=== PATIENT | female | born 1945 | race Caucasian/White ===

== ENCOUNTER 2022-07-02 21:38 | Emergency (ER) | payer MEDICARE ==
[2022-07-02 22:04] VITALS: RESP 16; TEMP 97.6
--- NOTE | 2022-07-02 22:08 | ED ---
Fall HPI - General Chief Complaint: Fall Stated Complaint: Fall, Shoulder injruy Time Seen by Provider: 07/02/22 21:55 Source: patient, RN notes reviewed, old records reviewed Mode of arrival: EMS - History of Present Illness Initial Comments: 77-year-old female here status post fall complaining of shoulder pain. Patient on her right side of her body but also her head. No loss of consciousness no blood thinners. 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 ROS Other: All systems not noted in ROS Statement are negative. Past Medical History Past Medical History: Hyperlipidemia, Thyroid Disorder History of Any Multi-Drug Resistant Organisms: None Reported Additional Past Surgical History / Comment(s): eyelids Past Psychological History: No Psychological Hx Reported Smoking Status: Never smoker Past Alcohol Use History: None Reported Past Drug Use History: None Reported General Exam Limitations: no limitations General appearance: alert, in no apparent distress Head exam: Present: atraumatic, normocephalic, normal inspection Eye exam: Present: normal appearance, PERRL, EOMI. Absent: scleral icterus, conjunctival injection, periorbital swelling ENT exam: Present: normal exam, mucous membranes moist Neck exam: Present: normal inspection. Absent: tenderness, meningismus, lymphadenopathy Respiratory exam: Present: normal lung sounds bilaterally. Absent: respiratory distress, wheezes, rales, rhonchi, stridor Cardiovascular Exam: Present: regular rate, normal rhythm, normal heart sounds. Absent: systolic murmur, diastolic murmur, rubs, gallop, clicks GI/Abdominal exam: Present: soft, normal bowel sounds. Absent: distended, tenderness, guarding, rebound, rigid Extremities exam: Present: normal inspection, full ROM, normal capillary refill. Absent: tenderness, pedal edema, joint swelling, calf tenderness Back exam: Present: normal inspection Neurological exam: Present: alert, oriented X3, CN II-XII intact Psychiatric exam: Present: normal affect, normal mood Skin exam: Present: warm, dry, intact, normal color. Absent: rash Course Vital Signs 07/02/22 07/03/22 07/03/22 21:58 01:43 02:05 Temperature 97.6 F Pulse Rate 73 100 96 Respiratory 16 16 16 Rate Blood Pressure 139/64 132/80 126/78 O2 Sat by Pulse 98 91 L 94 L Oximetry - Reevaluation(s) Reevaluation #1: 07/02/22 medical record is reviewed patient symptoms improved here in the ER patient informed of results and questions answered Medical Decision Making - Medical Decision Making 77 female to the emergency department for evaluation patient's positive for humerus fracture. Patient fracture splinted in a splint patient can be discharged - Radiology Data Radiology results: report reviewed (CT CT brain C-spine as well as x-rays of chest pelvis knee and shoulder show positive right humerus fracture nondisplaced), image reviewed Disposition Clinical Impression: Fall, Closed right humeral fracture Disposition: HOME SELF-CARE Condition: Good Instructions (If sedation given, give patient instructions): Arm Fracture in Adults (ED), Fall Prevention for Older Adults (ED), Proximal Humerus Fracture (ED) Is patient prescribed a controlled substance at d/c from ED?: No Referrals: Bartool Boucher DO [Primary Care Provider] - 1-2 days Time of Disposition: 02:00
--- NOTE | 2022-07-02 23:26 | XR ---
EXAMINATION TYPE: XR chest 1V DATE OF EXAM: 07/02/2022 COMPARISON: NONE HISTORY: Pain TECHNIQUE: Single view FINDINGS: There is no heart failure nor confluent pneumonic infiltrate. Costophrenic angles are clear . There are no hilar masses. Bony thorax is intact. IMPRESSION: No active cardiopulmonary disease. Normal heart.
--- NOTE | 2022-07-02 23:41 | XR ---
EXAMINATION TYPE: XR pelvis AP view DATE OF EXAM: 07/02/2022 COMPARISON: NONE HISTORY: Pain TECHNIQUE: Single view FINDINGS: Pelvic ring is intact. Proximal femurs and hip joints are intact. Sacroiliac joints are int act. IMPRESSION: Normal pelvis. No fracture.
--- NOTE | 2022-07-02 23:44 | XR ---
EXAMINATION TYPE: XR knee limited RT DATE OF EXAM: 07/02/2022 COMPARISON: NONE HISTORY: Knee pain TECHNIQUE: 2 views FINDINGS: There is minor spurring of the femoral and tibial condyles. There is mild spurring of the p atella. No fracture nor dislocation. No evidence of joint effusion. IMPRESSION: Mild degenerative spur formation. No fracture.
--- NOTE | 2022-07-02 23:45 | XR ---
EXAMINATION TYPE: XR shoulder complete RT DATE OF EXAM: 07/02/2022 COMPARISON: NONE HISTORY: Fall. Pain TECHNIQUE: 2 views FINDINGS: There is evidence of a chip fracture of the greater tuberosity humerus. There is likely a h umeral neck fracture. Exam limited by the 2 views. No dislocation. The scapula is intact. IMPRESSION: Greater tuberosity fracture of the humerus. There is likely femoral neck nondisplaced fra cture. Limited exam.
--- NOTE | 2022-07-02 23:47 | XR ---
EXAMINATION TYPE: XR forearm RT DATE OF EXAM: 07/02/2022 COMPARISON: NONE HISTORY: Pain TECHNIQUE: 2 views FINDINGS: I see no fracture nor dislocation. Joint spaces are normal. Elbow joint and wrist joint marty ear intact. Carpal bones appear intact. IMPRESSION: Negative right forearm exam. No fracture seen.
--- NOTE | 2022-07-02 23:53 | CT ---
EXAMINATION TYPE: CT brain willie gray DATE OF EXAM: 07/02/2022 COMPARISON: None HISTORY: fall/pain. no prior on PACS CT DLP: 1362.8 mGycm Automated exposure control for dose reduction was used. Images of the brain and cervical spine obtained with no contrast. There is mild cerebral atrophy. There is no mass effect or midline shift. No sign of intracranial hem orrhage. Calvarium is intact. Skull base is intact. There is normal aeration of the mastoid sinuses. The cervical vertebra have normal alignment. There is mild narrowing at the C4-5 and C5-6 disc spaces with mild spurring of the endplates. There is hypertrophic multilevel cervical facet arthropathy. No compression fracture. IMPRESSION: Spondylotic changes in the lower cervical spine. No fracture. Mild cerebral atrophy appropriate for age. No acute intracranial abnormality.
[2022-07-03] MEDS ORDERED: MORPHINE SULFATE 4 MG/ML SYRINGE IVP STA (01:00)
[2022-07-03 02:25] VITALS: BP 126/78; PULSE 96
== END 2022-07-03 02:05 | disposition home or self-care (01) ==
LOC: EC 21:38
DX: S42.251A Displaced fracture of greater tuberosity of right humerus, initial encounter for closed fracture (principal); W01.198A Fall on same level from slipping, tripping and stumbling with subsequent striking against other object, initial encounter; Y92.009 Unspecified place in unspecified non-institutional (private) residence as the place of occurrence of the external cause
CPT/HCPCS: 72170; 73030; 73090; 73560; 71045; 72125; 70450; 99285; 96374; J2270

== ENCOUNTER 2023-10-09 19:21 | Inpatient (IN) | payer MEDICARE ==
[2023-10-09] MEDS ORDERED: MORPHINE SULFATE 4 MG/ML SYRINGE IVP STA (19:52)
[2023-10-09] MEDS ORDERED: ONDANSETRON 4 MG/2 ML VIAL IVP STA (19:52)
--- NOTE | 2023-10-09 20:22 | XR ---
EXAMINATION TYPE: XR chest 1V DATE OF EXAM: 10/09/2023 COMPARISON: 07/02/2022 HISTORY: 78-year-old female fall, preoperative clearance TECHNIQUE: Single frontal view of the chest is obtained. FINDINGS: Heart normal size. Mild hyperinflation. Chronic interstitial prominence. No consolidation or pleural effusion. IMPRESSION: COPD and chronic changes. No acute process seen.
--- NOTE | 2023-10-09 20:23 | XR ---
EXAMINATION TYPE: XR Hip 2 views Bilateral and AP pelvis DATE OF EXAM: 10/09/2023 COMPARISON: 07/02/2022 HISTORY: 78-year-old female with fall and right-sided hip pain FINDINGS: Mild degenerative change at the SI joints. There is a minimally impacted subcapital femoral neck frac ture proximal right femur. No significant displacement. The left hip joint is intact. Pubic symphysis is intact. No additional acute fracture seen. IMPRESSION: Minimally impacted subcapital fracture right femoral neck.
[2023-10-09] MEDS ORDERED: MORPHINE SULFATE 4 MG/ML SYRINGE IV PRN (20:59)
[2023-10-09] MEDS ORDERED: ONDANSETRON 4 MG/2 ML VIAL IVP PRN (20:59)
[2023-10-09] MEDS ORDERED: NALOXONE 0.4 MG/ML 1 ML VIAL IV PRN (20:59)
--- NOTE | 2023-10-09 21:12 | ED ---
General Adult HPI - General Chief complaint: Fall Stated complaint: Fall, Right Hip Injury Time Seen by Provider: 10/09/23 19:35 Source: patient, EMS, RN notes reviewed Mode of arrival: EMS Limitations: no limitations - History of Present Illness Initial comments: 78-year-old female with no significant past medical history presents emergency Department chief complaint of fall. Patient was put that she was in her garage when she tripped over a ramp and fell onto her right hip. She is complaining of right hip pain that is worse with movement. She denies hitting her head or loss of consciousness. Denies any anticoagulant use. Denies numbness, tingling or weakness in the extremity. She did not take anything prior to arrival. - Related Data Home Medications Medication Instructions Recorded Confirmed Cholecalciferol [Vitamin D3 (25 50 mcg PO DAILY 10/09/23 10/09/23 Mcg = 1000 Iu)] Levothyroxine Sodium [Synthroid] 100 mcg PO DAILY 10/09/23 10/09/23 PARoxetine HCL [Paxil] 10 mg PO DAILY 10/09/23 10/09/23 Allergies Allergy/AdvReac Type Severity Reaction Status Date / Time No Known Allergies Allergy Unverified 10/09/23 20:10 Review of Systems ROS Statement: Those systems with pertinent positive or pertinent negative responses have been documented in the HPI. ROS Other: All systems not noted in ROS Statement are negative. Past Medical History Past Medical History: Hyperlipidemia, Thyroid Disorder History of Any Multi-Drug Resistant Organisms: None Reported Additional Past Surgical History / Comment(s): eyelids Past Psychological History: No Psychological Hx Reported Smoking Status: Never smoker Past Alcohol Use History: None Reported Past Drug Use History: None Reported General Exam - General Exam Comments Initial Comments: General: Alert, in no acute distress Head: atraumatic normocephalic. Eyes PERRL, EOMI intact, mucous membranes moist Respiratory: Lungs clear to auscultation bilaterally Cardiovascular: Heart rate regular rate and rhythm Abdominal: Soft without guarding or rebound Extremities: Right lower extremity is externally rotated. 2+ DT/PT pulses. Distal neurovascular intact. Limited secondary to pain Neuroogic: alert and oriented 3, CN II-XII intact, able to ambulate with steady gait Skin: warm dry and intact with normal color Limitations: no limitations Course Vital Signs 10/09/23 19:22 Temperature 97 F L Pulse Rate 51 L Respiratory 18 Rate Blood Pressure 163/93 O2 Sat by Pulse 97 Oximetry - Reevaluation(s) Reevaluation #1: 10/09/23 20:[address] Goddard, orthopedists agrees and accepts the patient for admission. Keeping the patient nothing by mouth at midnight. Reevaluation #2: 10/09/23 21:01 Reevaluated and updated on results. She is agreeable with the plan for admission. Medical Decision Making - Medical Decision Making Was pt. sent in by a medical professional or institution (, [employer]NEL[employer]US, WELDING MACHINE OPERATOR [employer], urgent care, hospital, or residential...) When possible be specific @ -[No] Did you speak to anyone other than the patient for history (EMS, parent, family, police, friend...)? What history was obtained from this source @ -EMS Did you review nursing and triage notes (agree or disagree)? Why? @ -[I reviewed and agree with nursing and triage notes] Were old charts reviewed (outside hosp., previous admission, EMS record, old EKG, old radiological studies, urgent care reports/EKG's, residential records)? Report findings @ -[No old charts were reviewed] Differential Diagnosis (chest pain, altered mental status, abdominal pain women, abdominal pain men, vaginal bleeding, weakness, fever, dyspnea, syncope, headache, dizziness, GI bleed, back pain, seizure, CVA, palpatations, mental health, musculoskeletal)? @ -[not applicable] EKG interpreted by me (3pts min.). @ -[As above] X-rays interpreted by me (1pt min.). @ -Right hip x-ray reveals a mildly displaced right femoral neck fracture CT interpreted by me (1pt min.). @ -[None done] U/S interpreted by me (1pt. min.). @ -[None done] What testing was considered but not performed or refused? (CT, X-rays, U/S, labs)? Why? @ -[None] What meds were considered but not given or refused? Why? @ -[None] Did you discuss the management of the patient with other professionals (professionals i.e. , [employer]US, WELDING MACHINE OPERATOR [employer], lab, RT, psych nurse, family welfare social work professor, meat service team member, teacher, field crop technical officer, correctional counselor/case manager)? Give summary @ -Case discussed with Dr. Goddard, orthopedist landscape contractor recommends patient NPO at midnight and accepts the patient for admission Was smoking cessation discussed for >3mins.? @ -[No] Was critical care preformed (if so, how long)? @ -[No] Were there social determinants of health that impacted care today? How? (Homelessness, low income, unemployed, alcoholism, drug addiction, transportation, low edu. Level, literacy, decrease access to med. care, longterm, rehab)? @ -[No] Was there de-escalation of care discussed even if they declined (Discuss DNR or withdrawal of care, Hospice)? DNR status @ -[No] What co-morbidities impacted this encounter? (DM, HTN, Smoking, COPD, CAD, Cancer, CVA, ARF, Chemo, Hep., AIDS, mental health diagnosis, sleep apnea, morbid obesity)? @ -[None] Was patient admitted / discharged? Hospital course, mention meds given and route, prescriptions, significant lab abnormalities, going to OR and other pertinent info. @ Admission. This is a pleasant 78-year-old male who presents the emergency department with mechanical fall. Patient had a thorough history and physical exam performed. Heart rate regular rate and rhythm, lungs sounds are clear. He shows right lower extremity is externally rotated. Limited range of motion secondary to pain. There is no crepitus noted. 2+ DT/PT pulses. Patient's x-ray revealed right femoral neck fracture. Patient was provided morphine with symptomatic improvement. She was updated on x-ray results and is agreeable with the plan for admission. Case is discussed with Dr. Goddard who agrees and accepts with recommend consult to sound for medical management. Case is discussed with Dr. Calderon, ED attending agrees with Plan of care Undiagnosed new problem with uncertain prognosis? @ -[No] Drug Therapy requiring intensive monitoring for toxicity (Heparin, Nitro, Insulin, Cardizem)? @ -[No] Were any procedures done? @ -[No] Diagnosis/symptom? @ -Right Femoral Neck Fracture -Mechanical Fall Acute, or Chronic, or Acute on Chronic? @ -Acute Uncomplicated (without systemic symptoms) or Complicated (systemic symptoms)? @ -Uncomplicated Side effects of treatment? @ -[No] Exacerbation, Progression, or Severe Exacerbation? @ -[No] Poses a threat to life or bodily function? How? (Chest pain, [place], [place], pneumonia, PE, COPD, DKA, ARF, appy, cholecystitis, CVA, Diverticulitis, Homicidal, Suicidal, threat to staff... and all critical care pts) @ -Low likelihood Disposition Clinical Impression: Fracture of femoral neck, right, Fall Disposition: ADMITTED IP TO THIS [facility] Condition: Fair Is patient prescribed a controlled substance at d/c from ED?: No Time of Disposition: 20:58
[2023-10-09] MEDS: SODIUM CHLORIDE 0.9% 1,000 ML IV SCH (22:19)
[2023-10-10 00:13] LABS: Basophils % (A) 0 %; Eosinophils # (A) 0.1 k/uL (0-0.7); Eosinophils % (A) 1 %; HCT 41.4 % (34.0-46.0); HGB 13.9 gm/dL (11.4-16.0); Lymphocytes # (A) 1.1 k/uL (1.0-4.8); Lymphocytes % (A) 7 %; MCH 34.2 pg (25.0-35.0); MCHC 33.6 g/dL (31.0-37.0); MCV 101.8 fL (80.0-100.0); Macrocytosis Slight; Mean Platelet Volume 7.4; Monocytes # (A) 0.7 k/uL (0-1.0); Monocytes % (A) 5 %; Neutrophils # (A) 13.2 k/uL (1.3-7.7); Neutrophils % (A) 87 %; Platelet Count 255 k/uL (150-450); RBC 4.07 m/uL (3.80-5.40); RDW 12.6 % (11.5-15.5); WBC 15.2 k/uL (3.8-10.6)
[2023-10-10 00:26] LABS: Prothrombin Time 11.2 sec (10.0-12.5)
[2023-10-10 00:27] LABS: Partial Thromboplastin Time 21.1 sec (22.0-30.0)
[2023-10-10 00:29] LABS: African American GFR (CKD) >90 (>60 ml/min/1.73 sqM); Anion Gap 8 mmol/L; Blood Urea Nitrogen 15 mg/dL (7-17); Carbon Dioxide 24 mmol/L (22-30); Chloride 107 mmol/L (98-107); Glucose 102 mg/dL (74-99); Non-African American GFR(CKD) 86 (>60 ml/min/1.73 sqM); Potassium 3.4 mmol/L (3.5-5.1); Sodium 139 mmol/L (137-145)
[2023-10-10] MEDS ORDERED: POTASSIUM CHLORIDE ER 20 MEQ TAB.ER PO STA (03:32)
--- NOTE | 2023-10-10 03:32 | P.CONS ---
History of Present Illness - Reason for Consult Consult date: 10/10/23 pre op medical eval - Chief Complaint fall - History of Present Illness 78 year old female with hypothyroid patient coming in after an accidental fall at home, she tripped on ramps in her garage, fell down on her right hip, denies head inury , or passing out. she is not on blood thinners or ASA. she could not get up or walk, upon arrival to the ED and evaluation she was found to have right hip fracture. no open wounds . patient denies falling in the past, she is active at baseline. patient denies fever, chills uri symptoms , changes in urinary or bowel habits, denies abd pain nausea or vomiting, denies tobacco smoking , illicit drugs or alcohol review of systems Pertinent positives as noted in HPI. All other systems were reviewed and are negative on exam Constitutional: No acute distress, conversant, pleasant Eyes: Anicteric sclerae, moist conjunctiva, Pupils equal round reactive to light ENMT: NC/AT Oropharynx clear, no erythema, or exudates Neck: Supple, no masses, or JVD No carotid bruits No thyromegaly Lungs: Clear to auscultation Clear to percussion Normal respiratory effort, no accessory muscle use Cardiovascular: Heart regular in rate and rhythm, No murmurs, gallops, or rubs No peripheral edema Abdominal: Soft Nontender, no guarding, rebound or rigidity Abdomen moving with respiration Normoactive bowel sounds No hepatomegaly, No splenomegaly No palpable mass No abdominal wall hernia noted Extremities: No digital cyanosis No clubbing Pedal pulses intact and symmetrical Radial pulses intact and symmetrical No calf tenderness Psychiatric: Alert and oriented to person, place and time Appropriate affect fair judgement Neuro Muscles Strength 5/5 in all 4 extremities with limited exam over right lower extremity due to hip fracture Sensation to light touch grossly present throughout Cranial nerves II-XII grossly intact Past Medical History Past Medical History: Hyperlipidemia, Thyroid Disorder History of Any Multi-Drug Resistant Organisms: None Reported Past Surgical History: Tonsillectomy Additional Past Surgical History / Comment(s): eyelids Past Anesthesia/Blood Transfusion Reactions: No Reported Reaction Past Psychological History: No Psychological Hx Reported Smoking Status: Never smoker Past Alcohol Use History: None Reported Past Drug Use History: None Reported Medications and Allergies Home Medications Medication Instructions Recorded Confirmed Type Cholecalciferol [Vitamin D3 (25 50 mcg PO DAILY 10/09/23 10/09/23 History Mcg = 1000 Iu)] Levothyroxine Sodium [Synthroid] 100 mcg PO DAILY 10/09/23 10/09/23 History PARoxetine HCL [Paxil] 10 mg PO DAILY 10/09/23 10/09/23 History Allergies Allergy/AdvReac Type Severity Reaction Status Date / Time No Known Allergies Allergy Unverified 10/09/23 20:10 Physical Exam Vitals: Vital Signs Temp Pulse Resp BP Pulse Ox 10/10/23 01:41 97.9 F 75 16 149/87 97 10/09/23 22:15 100 18 153/74 98 10/09/23 19:22 97 F L 51 L 18 163/93 97 Intake and Output 10/09/23 10/09/23 10/10/23 14:59 22:59 06:59 Other: Weight 99.337 kg 99.337 kg Results CBC & Chem 7: 10/09/23 23:41 10/09/23 23:41 Labs: Abnormal Lab Results - Last 24 Hours (Table) 10/09/23 10/09/23 10/09/23 Range/Units 23:41 23:41 23:41 WBC 15.2 H (3.8-10.6) k/uL MCV 101.8 H (80.0-100.0) fL Neutrophils # 13.2 H (1.3-7.7) k/uL APTT 21.1 L (22.0-30.0) sec Potassium 3.4 L (3.5-5.1) mmol/L Glucose 102 H (74-99) mg/dL Assessment and Plan Assessment: patient is 78 year old Female, presetned with fall and right hip pain. Patient denies any recent history or symptoms of congestive heart failure, mycardial infarction, syncope, arrhythmia, palpitation, or exertional dyspnea. Patient denies any past medical history of stroke, CAD, CHF, CKD, or DM. Patient is functional at baseline at >4 METs she is able to climb one or two flight of stairs with no limitations, she is able to perform house chores. Patient labs reviewed, EKG done and reviewed no acute ST changes, occasional premature atrial contractions Patient is scheduled for orthopedic surgery to fix right hip fracture. This is of moderate risk, however, patient has no medical risk factors from her past medical history. Patient can proceed to surgery with moderate but acceptable perioperative cardiovascular risk factors. This has been explained to the patient , all questions answered, patient verbalized understanding and agreement. hypothyroid resume levothyroxine right hip fracture management per orthopedic team pain control with opiates npo after midnight gentle IVF hydration with normal saline mild hypokalemia replace po 40 meq kdur stable from medical stand point thank you for this consultation blood work WBC 15.2, Hgb 13.9 Na 139, K 3.4 BUN 15 cr 0.6
[2023-10-10] MEDS: LEVOTHYROXINE 100 MCG TAB PO SCH (06:33)
--- NOTE | 2023-10-10 09:10 | P.HPOR ---
History of Present Illness H&P Date: 10/10/23 This is a 78-year-old female who is admitted for right hip fracture. Patient states that she fell in her garage at home on 10/09/2023. Patient was seen and evaluated in the emergency room where x-rays revealed a right femoral neck fracture. Patient states that she lives at home with her daughter. Patient states that she normally ambulates without any assistive devices. Patient's past medical history is significant for hyperlipidemia and a thyroid condition. Patient denies any fever/chills, numbness, weakness, tingling, abdominal pain, shortness of breath or chest pain. Review of Systems See HPI. Past Medical History Past Medical History: Hyperlipidemia, Thyroid Disorder History of Any Multi-Drug Resistant Organisms: None Reported Past Surgical History: Tonsillectomy Additional Past Surgical History / Comment(s): eyelids Past Anesthesia/Blood Transfusion Reactions: No Reported Reaction Past Psychological History: No Psychological Hx Reported Smoking Status: Never smoker Past Alcohol Use History: None Reported Past Drug Use History: None Reported Medications and Allergies Home Medications Medication Instructions Recorded Confirmed Type Cholecalciferol [Vitamin D3 (25 50 mcg PO DAILY 10/09/23 10/09/23 History Mcg = 1000 Iu)] Levothyroxine Sodium [Synthroid] 100 mcg PO DAILY 10/09/23 10/09/23 History PARoxetine HCL [Paxil] 10 mg PO DAILY 10/09/23 10/09/23 History Allergies Allergy/AdvReac Type Severity Reaction Status Date / Time No Known Allergies Allergy Unverified 10/09/23 20:10 Physical Examination On exam patient is resting comfortably in bed in no acute distress. Patient is alert and oriented 3. Right lower extremity: Short and externally rotated. Skin is intact. There is mild soft tissue swelling. The right lower extremity is warm and well perfused. Calf is soft and nontender to palpation. Dorsalis pedis pulse is 2+. Patient has good range of motion of the right foot and ankle. Sensation intact. Neurovascular status and circulatory status are intact. Head is normocephalic and atraumatic. Patient moves the head and neck freely without discomfort. Exams of bilateral upper extremities and the left lower extremity are within normal limits. Results X-rays of the right hip and pelvis are reviewed and reveal right femoral neck fracture. - Labs Labs: Abnormal Lab Results - Last 24 Hours (Table) 10/09/23 10/09/23 10/09/23 Range/Units 23:41 23:41 23:41 WBC 15.2 H (3.8-10.6) k/uL MCV 101.8 H (80.0-100.0) fL Neutrophils # 13.2 H (1.3-7.7) k/uL APTT 21.1 L (22.0-30.0) sec Potassium 3.4 L (3.5-5.1) mmol/L Glucose 102 H (74-99) mg/dL H & H 10/09/23 Range/Units 23:41 Hgb 13.9 (11.4-16.0) gm/dL Hct 41.4 (34.0-46.0) % Coagulation 10/09/23 Range/Units 23:41 INR 1.0 (<1.2) Result Diagrams: 10/09/23 23:41 10/09/23 23:41 Assessment and Plan (1) Fall Current Visit: Yes Status: Acute Code(s): W19.XXXA - UNSPECIFIED FALL, INITIAL ENCOUNTER SNOMED Code(s): 2322721 (2) Fracture of femoral neck, right Current Visit: Yes Status: Acute Code(s): S72.001A - FRACTURE OF UNSP PART OF NECK OF RIGHT FEMUR, INIT SNOMED Code(s): 3154883 Plan: 1. NPO 2. Continue pain control and bedrest. 3. Appreciate input from internal medicine. Patient has been medically cleared. 4. Planning for right hip hemiarthroplasty with direct anterior approach later today pending patient consent.
[2023-10-10] MEDS ORDERED: LACTATED RINGERS 1,000 ML IV ONE (09:38)
[2023-10-10] MEDS ORDERED: TRANEXAMIC 1,000 MG/100ML-NACL 1,000 MG in SALINE 1 100ML.BAG IVPB PRN (10:24)
[2023-10-10] MEDS ORDERED: ONDANSETRON 4 MG/2 ML VIAL IVP ONE (10:25)
[2023-10-10] MEDS ORDERED: DEXAMETHASONE SOD PHOSPHATE 4 MG/ML 1 ML VIAL IVP ONE (10:25)
[2023-10-10] MEDS ORDERED: MAGNESIUM HYDROXIDE 2,400 MG/30 ML CUP PO PRN (10:51)
[2023-10-10] MEDS ORDERED: HYDROmorphone 0.5 MG/0.5 ML SYRINGE IVP PRN ×3 (10:51)
[2023-10-10] MEDS ORDERED: ONDANSETRON 4 MG/2 ML VIAL IVP PRN (10:51)
[2023-10-10] MEDS ORDERED: NALOXONE 0.4 MG/ML 1 ML VIAL IV PRN (10:51)
[2023-10-10] MEDS ORDERED: MIDAZOLAM 2 MG/2 ML VIAL ONE (11:07)
[2023-10-10] MEDS ORDERED: LIDOCAINE 1% INJ 10MG/ML (20 ML MDV) ONE (11:07)
[2023-10-10] MEDS ORDERED: fentaNYL (PF) 50 MCG/ML 2 ML AMP ONE (11:07)
[2023-10-10] MEDS ORDERED: PROPOFOL 10 MG/ML 20 ML VIAL IV ONE (11:07)
[2023-10-10] MEDS ORDERED: TRANEXAMIC 1,000 MG/100ML-NACL PREMIX BAG ONE (11:07)
[2023-10-10] MEDS ORDERED: GLYCOPYRROLATE 0.2 MG/ML 2 ML VIAL ONE (11:07)
[2023-10-10] MEDS ORDERED: ROCURONIUM 10 MG/ML (5 ML VIAL) IV ONE (11:07)
[2023-10-10] MEDS ORDERED: NEOSTIGMINE 1 MG/ML 10 ML VIAL ONE (11:07)
[2023-10-10] MEDS ORDERED: SUCCINYLCHOLINE CHLORIDE 200 MG/10 ML VIAL IV ONE (11:07)
[2023-10-10] MEDS ORDERED: ceFAZolin 1,000 MG in SODIUM CHLORIDE 0.9% 1,000 ML IRRIGATION ONE (11:07)
[2023-10-10] MEDS ORDERED: ROPIVACAINE 5 MG/ML 30 ML VIAL MISCELLANE ONE ×2 (11:11→12:02)
--- NOTE | 2023-10-10 12:05 | P.OP ---
Date of Procedure: 10/10/23 Preoperative Diagnosis: Subcapital fracture right hip Postoperative Diagnosis: Subcapital fracture right hip Procedure(s) Performed: Right hip hemiarthroplasty Implants: Reece and nephew Polarstem size 3 standard with a collar Reece & Nephew tandem unipolar, 46 mm Reece & Nephew tandem unipolar 12/14 taper sleeve, -3 mm All components were press-fit. Anesthesia: spinal Surgeon: Bartolo Goddard Insurance Instructor #1: Uzma Corrigan Estimated Blood Loss (ml): 300 Pathology: none sent Condition: stable Disposition: PACU Indications for Procedure: This is a 78-year-old female that sustained a ground-level fall at home. X-rays demonstrate a subcapital fracture of her right hip. After discussing the surgical and nonsurgical treatment options with her at length, I recommended a right hip hemiarthroplasty. Informed consent was obtained. Operative Findings: The operative findings are consistent with a subcapital fracture of the right hip Description of Procedure: The patient was seen and evaluated in the preoperative area and the consent was reviewed. The operative site was marked with a skin marker. The patient verified the procedure and operative site. A AUSTIN block was placed by anesthesia in the preoperative area. The patient was then brought to the operating room and given preoperative antibiotics intravenously. 1 g of Tranexamic acid was also given intravenously. A spinal anesthetic was administered by the anesthesia department. The patient was then placed on the Bird In Hand table with the bony prominences well-padded. The hip area was then prepped with a ChloraPrep solution and draped in the usual sterile fashion. A universal timeout was then performed, which confirmed the patient's name, surgical site, ALLERGIES, and procedure being performed on the consent. Next the incision site was located at 1 cm distal and 4 cm lateral to the anterior superior iliac spine. The skin and subcutaneous tissues were sharply incised. Incision was carefully dissected down to the fascia overlying the tensor fascia melissa muscle. This fascia was then incised in line with the muscle fibers. Care was taken to stay laterally in order to avoid injuring the lateral femoral cutaneous nerve. Next, using blunt finger dissection, the tensor fascia melissa muscle was dissected off its investing fascia. The muscle was then carefully retracted laterally with a cobra retractor over the lateral neck of the femur. Next, the circumflex vessels were identified and cauterized using the Aquamantis device. The anterior hip capsule was then exposed. The capsule was then opened and an inverted T fashion. The retractors were then placed intracapsularly. The retractors were maintained intracapsular throughout the procedure. The proximal femur was then visualized. A small amount of traction was placed on the leg. The femoral neck was then osteotomized at the appropriate level above the lesser trochanter. A small wedge of bone was then removed from the remaining femoral head. Next, using a corkscrew the femoral head was removed from the acetabulum. The femoral head was then measured. Attention was then turned to the acetabulum. The acetabulum was exposed and inspected. There was no evidence of any significant arthrosis. Attention was then directed to the femur. With the aid of the Bird In Hand table, the femur was externally rotated to approximately 130, extended, and adducted under the opposite leg. A side hook was then placed under the proximal femur, and the side hook elevator was used to elevate the proximal femur while releasing the ca psule. Retractors were then placed. A capsular release was performed, as well as a release of the conjoined tendon, which afforded excellent visualization of the proximal femur. Next, a box osteotome was used to lateralize the proximal femur. A barge hand was then used to locate the femoral canal. Sequential broaching was then performed with appropriate size which afforded excellent fixation in the proximal femur. A trial was then placed with appropriate head and neck, and the hip was gently reduced with the aid of the Bird In Hand table. Fluoroscopy was then used to check position of the components, as well as to evaluate the leg lengths and offset. The leg lengths and offset were measured as closely as possible to ensure stability of the hip. The hip was then gently dislocated and the trials were then removed. Final implants were then impacted and the hip was again reduced. Final fluoroscopic x-rays confirmed that the components were in anatomic position. The leg lengths and offset were measured and were found to coincide with the trial measurements. The hip was also taken through range of motion, and found to be stable. The hip was then copiously irrigated with antibiotic solution with pulsatile lavage. The hip was then irrigated with Irrisept solution. The soft tissues were then injected with a ropivacaine solution. A second dose of 1 g of Tranexamic acid was also given intravenously. The fascia was then closed with 2-0 strata fix suture. The subcutaneous tissue was closed with 3-0 Vicryl. The subcuticular tissue was closed with 3-0 strata fix suture. The skin was then closed with Exofin skin glue. After the glue and dried, and Optifoam silver impregnated dressing was applied. The patient was then transferred to the recovery room in stable condition. The trading assistant CORNELIUS Holden was required due to the complexity of surgery, and the need for skilled surgical nurse for positioning, draping, exposure, retraction, and closure of the wound.
--- NOTE | 2023-10-10 12:49 | XR ---
EXAMINATION TYPE: XR Hip Limited RT DATE OF EXAM: 10/10/2023 Comparison: Radiograph 10/09/2023 Clinical History: 78-year-old female Status post hip surgery, assess surgical alignment Findings: Interval placement of right hip hemiarthroplasty. Femoral stem component of the prosthesis appears we ll seated without periprosthetic fracture. Alignment grossly anatomic. Small foci of soft tissue air related to recent operation. Impression: Uncomplicated postoperative appearance right hip hemiarthroplasty.
--- NOTE | 2023-10-10 13:23 | FL ---
EXAMINATION TYPE: FL guidance operating room, XR Hip Limited RT DATE OF EXAM: 10/10/2023 Comparison: 10/09/2023 Clinical History: 78-year-old female RT anterior hip Findings: RT hip vinnie with Heithoff. 1.2880 Gycm2 DAP. 25 sec fluoro time. 2 images saved. Impression: Intraoperative fluoroscopy as above.
--- NOTE | 2023-10-10 14:43 | P.CRDCN ---
History of Present Illness Consult date: 10/10/23 Consult reason: atrial fibrillation (During hip hemiarthroplasty) History of present illness: History of present illness: This is a 78 year old female patient with past medical history of hyperlipidemia, hypothyroidism. We have been asked to evaluate patient for A. fib during hemiarthroplasty but according to patient's nurse, patient did not have atrial fibrillation. There was concern that the frequent PACs would lead to atrial fibrillation. Patient states that she has known this for a long time as it has been discussed with her PCP. Patient presented to the emergency center following a fall tripped over a ramp in her [place] fell on her right hip. Her initial blood pressure 163/93. Patient underwent right hip hemiarthroplasty for subcapital fracture right hip with Dr. Goddard today. Patient denies having any chest pain, palpitations, lightheadedness or dizziness. Patient did not have any lightheadedness or dizziness prior to her fall which was a mechanical trip and fall. EKG #1 sinus rhythm with PACs. Chest x-ray: COPD, chronic changes. No acute process. WBC 15.2, hemoglobin 13.9, platelet count 255. INR 1. Sodium 139, potassium 3.4, BUN 15 creatinine syrup 0.64. Blood sugar 102. Home cardiac medications: None Review Of Systems: At the time of my exam: CONSTITUTIONAL: Denies fever or chills. CARDIOVASCULAR: Denies chest pain, Denies shortness of breath, no orthopnea, PND or palpitations. RESPIRATORY: Denies cough. GASTROINTESTINAL: Denies abdominal pain, diarrhea, constipation, nausea or vomiting. MUSCULOSKELETAL: Denies myalgias. NEUROLOGIC: Denies numbness, tingling or weakness. ENDOCRINE: Denies fatigue, weight change, polydipsia or polyurina. GENITOURINARY: Denies burning, hematuria or urgency with micturation. HEMATOLOGIC: Denies history of anemia or bleeding. Physical examination: Gen: This is a 78-year-old female in no acute distress. VS: reviewed HEENT: Head is atraumatic, normocephalic. Pupils equal, round. Sclerae is anicteric. NECK: Supple. No JVD. LUNGS: Clear to auscultation. No wheezes or rhonchi. No intercostal retractions. HEART: Irregular rate and rhythm. No murmur. ABDOMEN: Soft No tenderness. EXTREMITIES: No pedal edema. No calf tenderness. NEUROLOGICAL: Patient is awake, alert and oriented x3. Assessment: PACs Mechanical trip and fall Status post right hip hemiarthroplasty for subcapital fracture right hip 10/10 Hyperlipidemia Hypothyroidism High blood pressure readings Plan: Start patient on Toprol-XL 25 mg daily Obtain 2-D echocardiogram and Doppler study to assess cardiac structure and function Further recommendations to follow based upon clinical course Thank you kindly for this consultation. Nurse practitioner note has been reviewed, I agree with documented findings and plan of care. Patient was seen and examined. Past Medical History Past Medical History: Hyperlipidemia, Thyroid Disorder History of Any Multi-Drug Resistant Organisms: None Reported Past Surgical History: Tonsillectomy Additional Past Surgical History / Comment(s): eyelids Past Anesthesia/Blood Transfusion Reactions: No Reported Reaction Past Psychological History: No Psychological Hx Reported Smoking Status: Never smoker Past Alcohol Use History: None Reported Past Drug Use History: None Reported Medications and Allergies Home Medications Medication Instructions Recorded Confirmed Type Cholecalciferol [Vitamin D3 (25 50 mcg PO DAILY 10/09/23 10/09/23 History Mcg = 1000 Iu)] Levothyroxine Sodium [Synthroid] 100 mcg PO DAILY 10/09/23 10/09/23 History PARoxetine HCL [Paxil] 10 mg PO DAILY 10/09/23 10/09/23 History HYDROcodone/APAP 7.5-325MG [[place] 1 - 2 tab PO Q6H PRN #32 tab 10/10/23 Rx 7.5-325] Rivaroxaban [Xarelto] 10 mg PO DAILY #30 tab 10/10/23 Rx Sennosides [Senokot] 2 tab PO DAILY PRN #60 tablet 10/10/23 Rx Allergies Allergy/AdvReac Type Severity Reaction Status Date / Time No Known Allergies Allergy Unverified 10/09/23 20:10 Physical Exam Vitals: Vital Signs Temp Pulse Pulse Pulse Resp BP BP 10/10/23 13:06 78 16 166/72 10/10/23 12:50 79 16 166/70 10/10/23 12:34 98 F 79 16 161/56 10/10/23 09:53 61 18 183/87 10/10/23 09:40 97.3 F L 93 18 199/93 10/10/23 07:22 97.5 F L 56 L 18 153/85 10/10/23 01:55 97.7 F 62 18 146/70 10/10/23 01:41 97.9 F 75 16 149/87 10/09/23 22:15 100 18 153/74 10/09/23 19:22 97 F L 51 L 18 163/93 Pulse Ox 10/10/23 13:06 100 10/10/23 12:50 98 10/10/23 12:34 94 L 10/10/23 09:53 10/10/23 09:40 91 L 10/10/23 07:22 97 10/10/23 01:55 92 L 10/10/23 01:41 97 10/09/23 22:15 98 10/09/23 19:22 97 Intake and Output 10/09/23 10/10/23 10/10/23 22:59 06:59 14:59 Intake Total 851 Output Total 700 Balance 151 Intake: IV 851 Output: Urine 400 Estimated Blood Loss 300 Other: Voiding Method External Catheter # Voids 0 Weight 99.337 kg 99.337 kg 99.337 kg Results 10/09/23 23:41 10/09/23 23:41 Coagulation 10/09/23 Range/Units 23:41 PT 11.2 (10.0-12.5) sec APTT 21.1 L (22.0-30.0) sec CBC 10/09/23 Range/Units 23:41 WBC 15.2 H (3.8-10.6) k/uL RBC 4.07 (3.80-5.40) m/uL Hgb 13.9 (11.4-16.0) gm/dL Hct 41.4 (34.0-46.0) % Plt Count 255 (150-450) k/uL Comprehensive Metabolic Panel 10/09/23 Range/Units 23:41 Sodium 139 (137-145) mmol/L Potassium 3.4 L (3.5-5.1) mmol/L Chloride 107 (98-107) mmol/L Carbon Dioxide 24 (22-30) mmol/L BUN 15 (7-17) mg/dL Creatinine 0.64 (0.52-1.04) mg/dL Glucose 102 H (74-99) mg/dL Calcium 9.0 (8.4-10.2) mg/dL Current Medications Generic Name Dose Route Start Last Admin Trade Name Freq PRN Reason Stop Dose Admin Hydrocodone Bitart/Acetaminophen 1 each 10/10/23 10:53 Hydrocodone/Apap 7.5-325mg 1 Each Tab PO Q6H PRN Pain Scale 1 to 5 Hydrocodone Bitart/Acetaminophen 2 each 10/10/23 10:53 Hydrocodone/Apap 7.5-325mg 1 Each Tab PO Q6H PRN Pain Scale 6 to 10 Hydromorphone HCl 0.125 mg 10/10/23 10:51 Hydromorphone 0.5 Mg/0.5 Ml Syringe IVP Q3HR PRN Pain Scale 1 to 3 Hydromorphone HCl 0.5 mg 10/10/23 10:51 Hydromorphone 0.5 Mg/0.5 Ml Syringe IVP Q3HR PRN Pain Scale 7 to 10 Hydromorphone HCl 0.25 mg 10/10/23 10:51 Hydromorphone 0.5 Mg/0.5 Ml Syringe IVP Q3HR PRN Pain Scale 4 to 6 Tranexamic Acid/Sodium 100 mls @ 200 mls/hr 10/10/23 10:24 Chloride 1,000 mg/ IV Solution IVPB 10/10/23 23:00 Q2HR PRN Bleeding Protocol Sodium Chloride 1,000 mls @ 70 mls/hr 10/10/23 11:00 Saline 0.9% IV .[id number] [facility] Cefazolin Sodium 2 gm/ Sodium 50 mls @ 100 mls/hr 10/10/23 20:00 Chloride IVPB 10/11/23 04:29 Q8H [facility] Protocol Levothyroxine Sodium 100 mcg 10/10/23 06:30 10/10/23 06:33 Levothyroxine 100 Mcg Tab PO 100 mcg DAILY@0630 [facility] Administration Magnesium Hydroxide 2,400 mg 10/10/23 10:51 Magnesium Hydroxide 2,400 Mg/30 Ml Cup PO DAILY PRN Constipation Morphine Sulfate 4 mg 10/09/23 20:59 10/10/23 01:53 Morphine Sulfate 4 Mg/Ml Syringe IV 4 mg Q4HR PRN Administration Severe Pain (Scale 7 to 10) Naloxone HCl 0.2 mg 10/10/23 10:51 Naloxone 0.4 Mg/Ml 1 Ml Vial IV Q2M PRN Opioid Reversal Ondansetron HCl 4 mg 10/10/23 10:51 Ondansetron 4 Mg/2 Ml Vial IVP Q8H PRN Nausea And Vomiting Rivaroxaban 10 mg 10/11/23 09:00 Rivaroxaban 10 Mg Tab PO 11/15/23 09:01 DAILY [facility] Protocol Senna/Docusate Sodium 2 each 10/10/23 21:00 Sennosides-Docusate Sodium 1 Each Tab PO [facility] Intake and Output 10/09/23 10/10/23 10/10/23 22:59 06:59 14:59 Intake Total 851 Output Total 700 Balance 151 Intake: IV 851 Output: Urine 400 Estimated Blood Loss 300 Other: Voiding Method External Catheter # Voids 0 Weight 99.337 kg 99.337 kg 99.337 kg Patient Weight 10/11/23 06:59 Weight 99.337 kg 10/09/23 23:41 10/09/23 23:41
--- NOTE | 2023-10-10 17:36 | P.PN ---
Subjective Progress Note Date: 10/10/23 Hospital course: Patient is a very pleasant 70-year-old female with a past medical history of hypothyroidism. She presented to the hospital status post mechanical fall resulting in right hip pain. Patient was found to have a right hip fracture and admitted under orthopedic surgery team. We were consulted for medical clearance and continued medical management throughout hospitalization. Patient underwent a right hip hemiarthroplasty completed this morning by Dr. Goddard secondary to patient's subcapital fracture of right hip. Physical exam: Patient seen and fully evaluated at bedside upon return from OR. She currently reports controlled postoperative pain and denies having any complaints including headache, lightheadedness, dizziness, chest pain, palpitations, or shortness of breath. Patient denies having any postoperative nausea or vomiting or any other complaints at this time. Patient seen and fully evaluated at bedside upon return from OR. Vital signs reviewed and stable. General: Nontoxic, no distress and appears stated age. Derm: Skin warm and dry, normal coloration for ethnicity. Head: Atraumatic, normocephalic and symmetric. Eyes: EOMs intact, no lid lag, and anicteric sclera Mouth: no lip lesions, mucus membranes moist Cardiovascular: Irregularly irregular with normal S1S2, no murmur, positive posterior tibial pulses bilaterally, and cap refill < 2 seconds. Lungs: Respirations even, regular, and unlabored on room air. Lungs CTA bilatera lly, no rhonchi, no rales, no wheezing, and no accessory muscle usage. Abdominal: soft, nontender to palpation, no guarding, no appreciable organomegaly Ext: ROM intact. No gross muscle atrophy, no edema, no contractures Neuro: Speech clear, face symmetrical and CN II-XII grossly intact with no noted focal neuro deficits Psych: Alert and oriented to person, place, time, and situation. Appropriate and pleasant affect. Assessment and Plan of Care: New onset atrial fibrillation Patient went into new onset atrial fibrillation during surgical repair of right subcapital hip fracture. Cardiology was consulted for evaluation and starting patient on Toprol-XL 25 mg daily at this time. Order placed for continuous telemetry monitoring. Echocardiogram to be completed. Order placed for TSH with reflex free T4 Orders place and will follow up on morning CBC, CMP, and magnesium. Status post right hip hemiarthroplasty Mechanical fall resulting in subcapital fracture right hip. Management by primary admitting orthopedic surgery team including DVT prophylaxis, wound/dressing care, pain management, weightbearing, and PT/OT Hypothyroidism Continue levothyroxine 100 g daily Hypokalemia Replaced with K Dur 40 mEq by mouth 1 dose. Repeat morning CMP and follow up on electrolytes, additional orders to be placed as needed based upon findings. Data reviewed: Blood pressure 155/76, heart rate 66, respiratory rate 16, and SpO2 of 97% on room air. Thank you for allowing us to participate in the care of this pleasant patient. Do not hesitate to contact us with questions. Someone can be reached from the [facility] hospitalist group all hours of the day at [phone] or via Make [employer] plate. Patient was seen independently by Nurse Pracitioner. This document was prepared using Like[employer] dictation software. Please allow for errors in baccarat manager, while rare they do occur. Objective - Vital Signs Vital signs: Vital Signs Temp 97.5 F L 10/10/23 07:22 Pulse 56 L 10/10/23 07:22 Resp 18 10/10/23 07:22 BP 153/85 10/10/23 07:22 Pulse Ox 97 10/10/23 07:22 FiO2 Intake & Output 10/09/23 10/10/23 10/10/23 18:59 06:59 18:59 Weight 99.337 kg Other: # Voids 0 - Labs CBC & Chem 7: 10/09/23 23:41 10/09/23 23:41 Labs: Abnormal Lab Results - Last 24 Hours (Table) 10/09/23 10/09/23 10/09/23 Range/Units 23:41 23:41 23:41 WBC 15.2 H (3.8-10.6) k/uL MCV 101.8 H (80.0-100.0) fL Neutrophils # 13.2 H (1.3-7.7) k/uL APTT 21.1 L (22.0-30.0) sec Potassium 3.4 L (3.5-5.1) mmol/L Glucose 102 H (74-99) mg/dL
[2023-10-10] MEDS: SODIUM CHLORIDE 0.9% 1,000 ML IV SCH ×2 (19:49)
[2023-10-10] MEDS: METOPROLOL SUCCINATE (ER) 25 MG TAB.ER.24H PO SCH (21:01)
[2023-10-10] MEDS: SENNOSIDES-DOCUSATE SODIUM 1 EACH TAB PO SCH (21:01)
[2023-10-10] MEDS: HYDROcodone/APAP 7.5-325MG 1 EACH TAB PO PRN (21:03)
[2023-10-11] MEDS: SODIUM CHLORIDE 0.9% 1,000 ML IV SCH ×2 (02:52→16:42)
[2023-10-11] MEDS: HYDROcodone/APAP 7.5-325MG 1 EACH TAB PO PRN ×2 (06:18→14:14)
[2023-10-11] MEDS: LEVOTHYROXINE 100 MCG TAB PO SCH (06:18)
[2023-10-11 08:00] LABS: Basophils % (A) 0 %; Eosinophils # (A) 0.1 k/uL (0-0.7); Eosinophils % (A) 1 %; HCT 36.3 % (34.0-46.0); HGB 11.8 gm/dL (11.4-16.0); Hypochromasia Slight; Lymphocytes # (A) 0.9 k/uL (1.0-4.8); Lymphocytes % (A) 7 %; MCH 34.5 pg (25.0-35.0); MCHC 32.6 g/dL (31.0-37.0); MCV 105.9 fL (80.0-100.0); Macrocytosis Slight; Mean Platelet Volume 7.6; Monocytes # (A) 0.8 k/uL (0-1.0); Monocytes % (A) 6 %; Neutrophils # (A) 10.4 k/uL (1.3-7.7); Neutrophils % (A) 85 %; Platelet Count 204 k/uL (150-450); RBC 3.42 m/uL (3.80-5.40); RDW 12.2 % (11.5-15.5); WBC 12.2 k/uL (3.8-10.6)
[2023-10-11] MEDS: METOPROLOL SUCCINATE (ER) 25 MG TAB.ER.24H PO SCH (08:42)
[2023-10-11] MEDS: RIVAROXABAN 10 MG TAB PO SCH (08:42)
--- NOTE | 2023-10-11 10:52 | CA ---
Transthoracic Echo Report Name: Fiona Ferris Age: 78 Gender: F : 1945 Exam Date: 10/11/2023 09:13 Exam Location: [facility] Ht (in): 65 Wt (lb): 219 Ordering Physician: Kaycee Veras Attending/Referring Phys: [id number], Eda Supervisor [employer] Aziza Pool RDCS Procedure CPT: Indications: LVF Cardiac Hx: Technical Quality: Fair Contrast 1: Total Dose (mL): Contrast 2: Total Dose (mL): MEASUREMENTS (Male / Female) Normal Values 2D ECHO LV Diastolic Diameter PLAX 4.3 cm 4.2 - 5.9 / 3.9 - 5.3 cm LV Systolic Diameter PLAX 3.1 cm IVS Diastolic Thickness 1.5 cm 0.6 - 1.0 / 0.6 - 0.9 cm LVPW Diastolic Thickness 1.2 cm 0.6 - 1.0 / 0.6 - 0.9 cm LV Relative Wall Thickness 0.6 RV Internal Dim ED PLAX 3.0 cm LA Systolic Diameter LX 3.4 cm 3.0 - 4.0 / 2.7 - 3.8 cm LV Diastolic Volume MOD BP 85.2 cm??? 67 - 155 / 56 - 104 cm??? LV Systolic Volume MOD BP 35.6 cm??? 22 - 58 / 19 - 49 cm??? LV Ejection Fraction MOD BP 58.3 % >= 55 % LV Cardiac Index MOD BP 1436.6 cm???/min???m??? LV Diastolic Volume MOD 4C 66.4 cm??? LV Systolic Volume MOD 4C 34.4 cm??? LV Ejection Fraction MOD 4C 48.1 % LV Cardiac Index MOD 4C 923.7 cm???/min???m??? LV Diastolic Length 4C 6.1 cm LV Systolic Length 4C 6.0 cm LV Diastolic Volume MOD 2C 105.7 cm??? LV Systolic Volume MOD 2C 34.2 cm??? LV Ejection Fraction MOD 2C 67.7 % LV Cardiac Index MOD 2C 2069.9 cm???/min???m??? LV Diastolic Length 2C 6.3 cm LV Systolic Length 2C 5.4 cm LA Volume 51.6 cm??? 18 - 58 / 22 - 52 cm??? LA Volume Index 23.7 cm???/m??? 16 - 28 cm???/m??? M-MODE Aortic Root Diameter MM 3.4 cm MV E Point Septal Separation 1.0 cm AV Cusp Separation MM 2.4 cm DOPPLER AV Peak Velocity 120.6 cm/s AV Peak Gradient 5.8 mmHg MV Area PHT 2.3 cm??? Mitral E Point Velocity 61.5 cm/s Mitral A Point Velocity 78.8 cm/s Mitral E to A Ratio 0.8 MV Deceleration Time 328.1 ms MV E' Velocity 4.9 cm/s Mitral E to MV E' Ratio 12.5 TR Peak Velocity 243.1 cm/s TR Peak Gradient 23.6 mmHg Right Ventricular Systolic Press 26.8 mmHg FINDINGS Left Ventricle Left ventricular ejection fraction is estimated at 45-50 %. Left ventricular cavity size normal. Moderately increased septal wall thickness. Mildly increased posterior wall thickness. Right Ventricle Normal right ventricular size. Right ventricular systolic pressure within normal limits. Right Atrium Normal right atrial size. Left Atrium Normal left atrial size. Mitral Valve Structurally normal mitral valve. No mitral stenosis, regurgitation or prolapse. Aortic Valve Trileaflet aortic valve. No aortic valve stenosis or regurgitation. Tricuspid Valve Structurally normal tricuspid valve. Mild tricuspid regurgitation. Pulmonic Valve Structurally normal pulmonic valve. Trace to mild pulmonic regurgitation. Pericardium No pericardial effusion. Aorta Normal size aortic root and proximal ascending aorta. CONCLUSIONS Mild LV systolic dysfunction Previewed by: Dr. Kermit Deal MD (Electronically Signed) Final Date: 11 October 2023 10:51
[2023-10-11 11:10] LABS: ALT 13 U/L (8-44); AST 27 U/L (13-35); Albumin 3.1 g/dL (3.8-4.9); Albumin/Globulin Ratio 1.72 Ratio (1.60-3.17); Alkaline Phosphatase 50 U/L (41-126); BUN/Creat Ratio 13.75 Ratio (12.00-20.00); Calcium 8.7 mg/dL (8.7-10.3); Carbon Dioxide 23.8 mmol/L (21.6-31.8); Chloride 108 mmol/L (96-109); Globulin 1.8 g/dL (1.6-3.3); Glucose 106 mg/dL (70-110); Magnesium 1.8 mg/dL (1.5-2.4); Potassium 4.5 mmol/L (3.5-5.5); Sodium 140 mmol/L (135-145); Total Bilirubin 0.5 mg/dL (0.3-1.2); Total Protein 4.9 g/dL (6.2-8.2)
--- NOTE | 2023-10-11 13:35 | P.PN ---
Subjective Progress Note Date: 10/11/23 This is a 78-year-old female who is status post right hip hemiarthroplasty. This is postoperative day #1 and patient is seen and evaluated at bedside today. Patient states that she is doing very well and her pain is well-controlled. Patient denies any new complaints today. Objective - Vital Signs Vital signs: Vital Signs Temp 98.2 F 10/11/23 07:05 Pulse 64 10/11/23 07:05 Resp 18 10/11/23 07:05 BP 136/68 10/11/23 07:05 Pulse Ox 95 10/11/23 08:25 FiO2 Intake & Output 10/10/23 10/11/23 10/11/23 18:59 06:59 18:59 Intake Total 851 Output Total 700 150 Balance 151 -150 Weight 99.337 kg Intake: IV 851 Output: Urine 400 150 Estimated Blood Loss 300 Other: Voiding Method External Catheter Indwelling Catheter - Exam Vital signs are stable. Patient is in no acute distress and is alert and oriented 3. Calf is soft and nontender to palpation. Dressing is clean, dry, and intact. Patient has full foot and ankle motion without pain or difficulty. Sensation intact. Neurovascular status and circulatory status are intact. - Labs CBC & Chem 7: 10/11/23 06:43 10/11/23 06:43 Labs: Abnormal Lab Results - Last 24 Hours (Table) 10/11/23 10/11/23 Range/Units 06:43 06:43 WBC 12.2 H (3.8-10.6) k/uL RBC 3.42 L (3.80-5.40) m/uL MCV 105.9 H (80.0-100.0) fL Neutrophils # 10.4 H (1.3-7.7) k/uL Lymphocytes # 0.9 L (1.0-4.8) k/uL Total Protein 4.9 L (6.2-8.2) g/dL Albumin 3.1 L (3.8-4.9) g/dL Assessment and Plan (1) Fall Current Visit: Yes Status: Acute Code(s): W19.XXXA - UNSPECIFIED FALL, INITIAL ENCOUNTER SNOMED Code(s): 8996325 (2) Fracture of femoral neck, right Current Visit: Yes Status: Acute Code(s): S72.001A - FRACTURE OF UNSP PART OF NECK OF RIGHT FEMUR, INIT SNOMED Code(s): 2769083 Plan: Continue routine postop care and pain control. Continue anticoagulation. Weightbearing as tolerated with a walker. Leave dressing in place for 7 days. Appreciate input from internal medicine and cardiology. Anticipate discharge home with homecare tomorrow.
--- NOTE | 2023-10-11 13:42 | P.PN ---
Subjective Progress Note Date: 10/11/23 Hospital course: Patient is a very pleasant 70-year-old female with a past medical history of hypothyroidism. She presented to the hospital status post mechanical fall resulting in right hip pain. Patient was found to have a right hip fracture and admitted under orthopedic surgery team. We were consulted for medical clearance and continued medical management throughout hospitalization. Patient underwent a right hip hemiarthroplasty completed on 10/10/[address] Goddard secondary to patient's subcapital fracture of right hip. Physical exam: Patient seen and fully evaluated at bedside this morning. Patient was sitting up in chair visiting with family at bedside. She currently reports mild postoperative pain but reports is controlled with current pain medication regimen. Patient denies any postoperative nausea or vomiting and denies any other complaints including headache, lightheadedness, dizziness, chest pain, palpitations, or shortness of breath. Patient seen and fully evaluated at bedside upon return from OR. Vital signs reviewed and stable. General: Nontoxic, no distress and appears stated age. Derm: Skin warm and dry, normal coloration for ethnicity. Head: Atraumatic, normocephalic and symmetric. Eyes: EOMs intact, no lid lag, and anicteric sclera Mouth: no lip lesions, mucus membranes moist Cardiovascular: Irregularly irregular with normal S1S2, no murmur, positive posterior tibial pulses bilaterally, and cap refill < 2 seconds. Lungs: Respirations even, regular, and unlabored on room air. Lungs CTA bilaterally, no rhonchi, no rales, no wheezing, and no accessory muscle usage. Abdominal: soft, nontender to palpation, no guarding, no appreciable organomegaly Ext: ROM intact. No gross muscle atrophy, no edema, no contractures Neuro: Speech clear, face symmetrical and CN II-XII grossly intact with no noted focal neuro deficits Psych: Alert and oriented to person, place, time, and situation. Appropriate and pleasant affect. Assessment and Plan of Care: New onset atrial fibrillation, maintaining controlled ventricular rate Patient went into new onset atrial fibrillation during surgical repair of right subcapital hip fracture. Cardiology was consulted for evaluation and started patient on Toprol-XL 25 mg daily at this time. Order placed for continuous telemetry monitoring. Echocardiogram completed reporting slightly impaired EF of 45-50% with moderately increased septal wall thickness otherwise no valvular or structural abnormalities reported. TSH normal findings at 1.210. Status post right hip hemiarthroplasty Mechanical fall resulting in subcapital fracture right hip. Management by primary admitting orthopedic surgery team including DVT prophylaxis, wound/dressing care, pain management, weightbearing, and PT/OT Hypothyroidism Continue levothyroxine 100 g daily Hypokalemia Replaced with K Dur 40 mEq by mouth 1 dose. Repeat morning CMP and follow up on electrolytes, additional orders to be placed as needed based upon findings. Data and imaging reviewed: Blood pressure 155/76, heart rate 66, respiratory rate 16, and SpO2 of 97% on room air. Postoperative labs reviewed. CBC showing mild cytosis with a WBC count of 12.2 improving from initial 15.2. BMP unremarkable showing resolution of hypokalemia with repeat potassium of 4.5. TSH was normal findings at 1.210. Echocardiogram completed and report reviewed stating slightly impaired EF of 45-50% with moderately increased septal wall thickness otherwise no valvular or structural abnormalities reported. Thank you for allowing us to participate in the care of this pleasant patient. Do not hesitate to contact us with questions. Someone can be reached from the [facility] hospitalist group all hours of the day at [phone] or via [employer] serve. Patient was seen independently by Nurse Pracitioner. This document was prepared using [employer] dictation software. Please allow for errors in tender labor, while rare they do occur. Objective - Vital Signs Vital signs: Vital Signs Temp 98.2 F 10/11/23 07:05 Pulse 64 10/11/23 07:05 Resp 18 10/11/23 07:05 BP 136/68 10/11/23 07:05 Pulse Ox 90 L 10/11/23 07:05 FiO2 Intake & Output 10/10/23 10/11/23 10/11/23 18:59 06:59 18:59 Intake Total 851 Output Total 700 150 Balance 151 -150 Weight 99.337 kg Intake: IV 851 Output: Urine 400 150 Estimated Blood Loss 300 Other: Voiding Method External Catheter Indwelling Catheter - Labs CBC & Chem 7: 10/11/23 06:43 10/11/23 06:43 Labs: Abnormal Lab Results - Last 24 Hours (Table) 10/11/23 Range/Units 06:43 WBC 12.2 H (3.8-10.6) k/uL RBC 3.42 L (3.80-5.40) m/uL MCV 105.9 H (80.0-100.0) fL Neutrophils # 10.4 H (1.3-7.7) k/uL Lymphocytes # 0.9 L (1.0-4.8) k/uL
--- NOTE | 2023-10-11 14:16 | P.PN ---
Subjective Progress Note Date: 10/11/23 Consult reason: atrial fibrillation (During hip hemiarthroplasty) History of present illness: History of present illness: This is a 78 year old female patient with past medical history of hyperlipidemia, hypothyroidism. We have been asked to evaluate patient for A. fib during hemiarthroplasty but according to patient's nurse, patient did not have atrial fibrillation. There was concern that the frequent PACs would lead to atrial fibrillation. Patient states that she has known this for a long time as it has been discussed with her PCP. Patient presented to the emergency center following a fall tripped over a ramp in her [place] fell on her right hip. Her initial blood pressure 163/93. Patient underwent right hip hemiarthroplasty for subcapital fracture right hip with Dr. Goddard today. Patient denies having any chest pain, palpitations, lightheadedness or dizziness. Patient did not have any lightheadedness or dizziness prior to her fall which was a mechanical trip and fall. EKG #1 sinus rhythm with PACs. Chest x-ray: COPD, chronic changes. No acute process. WBC 15.2, hemoglobin 13.9, platelet count 255. INR 1. Sodium 139, potassium 3.4, BUN 15 creatinine syrup 0.64. Blood sugar 102. Home cardiac medications: None 10/11 Patient is seen today in follow-up. Echocardiogram reveals mild LV systolic dysfunction, EF 45-50%. Results reviewed with the patient. Telemetry is sinus rhythm with PACs. Heart rate is in the 60s, blood pressure 136/68, pulse ox 95% on room air. Physical examination: Gen: This is a 78-year-old female in no acute distress. VS: reviewed HEENT: Head is atraumatic, normocephalic. Pupils equal, round. Sclerae is anicteric. NECK: Supple. No JVD. LUNGS: Clear to auscultation. No wheezes or rhonchi. No intercostal retractions. HEART: Irregular rate and rhythm. No murmur. ABDOMEN: Soft No tenderness. EXTREMITIES: No pedal edema. No calf tenderness. NEUROLOGICAL: Patient is awake, alert and oriented x3. Assessment: PACs Mechanical trip and fall Status post right hip hemiarthroplasty for subcapital fracture right hip 10/10 Hyperlipidemia Hypothyroidism High blood pressure readings Plan: Continue patient on Toprol-XL 25 mg daily Cardiology will sign off this case and follow on an as-needed basis. Please reconsult for any new concerns. Patient may follow-up in the office with Dr. Maricarmen Deal in 46 weeks. Nurse practitioner note has been reviewed, I agree with documented findings and plan of care. Patient was seen and examined. Objective - Vital Signs Vital signs: Vital Signs Temp 98.2 F 10/11/23 07:05 Pulse 64 10/11/23 07:05 Resp 18 10/11/23 07:05 BP 136/68 10/11/23 07:05 Pulse Ox 95 10/11/23 08:25 FiO2 Intake & Output 10/10/23 10/11/23 10/11/23 18:59 06:59 18:59 Intake Total 851 Output Total 700 150 Balance 151 -150 Weight 99.337 kg Intake: IV 851 Output: Urine 400 150 Estimated Blood Loss 300 Other: Voiding Method External Catheter Indwelling Catheter - Labs CBC & Chem 7: 10/11/23 06:43 10/11/23 06:43 Labs: Abnormal Lab Results - Last 24 Hours (Table) 10/11/23 10/11/23 Range/Units 06:43 06:43 WBC 12.2 H (3.8-10.6) k/uL RBC 3.42 L (3.80-5.40) m/uL MCV 105.9 H (80.0-100.0) fL Neutrophils # 10.4 H (1.3-7.7) k/uL Lymphocytes # 0.9 L (1.0-4.8) k/uL Total Protein 4.9 L (6.2-8.2) g/dL Albumin 3.1 L (3.8-4.9) g/dL
[2023-10-11] MEDS: SENNOSIDES-DOCUSATE SODIUM 1 EACH TAB PO SCH (20:41)
[2023-10-12] MEDS: LEVOTHYROXINE 100 MCG TAB PO SCH (06:19)
[2023-10-12] MEDS: SODIUM CHLORIDE 0.9% 1,000 ML IV SCH (06:35)
[2023-10-12] MEDS: HYDROcodone/APAP 7.5-325MG 1 EACH TAB PO PRN ×2 (08:23→15:54)
--- NOTE | 2023-10-12 09:48 | P.PN ---
Subjective Progress Note Date: 10/12/23 This is a 78-year-old female who is status post right hip hemiarthroplasty. This is postoperative day #2 and patient is seen and evaluated at bedside today. Patient states that she is starting to feel lightheaded when she gets up to ambulate and has to sit down. Patient states that she also feels a lot of anxiety today. Patient denies any shortness of breath or chest pain. Objective - Vital Signs Vital signs: Vital Signs Temp 97.8 F 10/12/23 07:30 Pulse 48 L 10/12/23 07:30 Resp 19 10/12/23 07:30 BP 120/75 10/12/23 07:30 Pulse Ox 95 10/12/23 08:42 FiO2 Intake & Output 10/11/23 10/12/23 10/12/23 18:59 06:59 18:59 Other: Voiding Method Indwelling Catheter # Voids 2 - Exam Vital signs are stable. Patient is in no acute distress and is alert and oriented 3. Calf is soft and nontender to palpation. Dressing is clean, dry, and intact. Patient has full foot and ankle motion without pain or difficulty. Sensation intact. Neurovascular status and circulatory status are intact. - Labs CBC & Chem 7: 10/11/23 06:43 10/11/23 06:43 Labs: Abnormal Lab Results - Last 24 Hours (Table) 10/11/23 Range/Units 06:43 Total Protein 4.9 L (6.2-8.2) g/dL Albumin 3.1 L (3.8-4.9) g/dL Assessment and Plan (1) Fall Current Visit: Yes Status: Acute Code(s): W19.XXXA - UNSPECIFIED FALL, INITIAL ENCOUNTER SNOMED Code(s): 5403533 (2) Fracture of femoral neck, right Current Visit: Yes Status: Acute Code(s): S72.001A - FRACTURE OF UNSP PART OF NECK OF RIGHT FEMUR, INIT SNOMED Code(s): 5249544 Plan: Continue routine postop care and pain control. Continue anticoagulation. Weightbearing as tolerated with a walker. Leave dressing in place for 7 days. Appreciate input from internal medicine and cardiology. Anticipate discharge home with homecare when cleared medically.
[2023-10-12] MEDS: RIVAROXABAN 10 MG TAB PO SCH (10:12)
[2023-10-12] MEDS: METOPROLOL SUCCINATE (ER) 25 MG TAB.ER.24H PO SCH (10:13)
[2023-10-12 11:29] LABS: HCT 33.8 % (34.0-46.0); HGB 11.4 gm/dL (11.4-16.0); MCH 34.9 pg (25.0-35.0); MCHC 33.7 g/dL (31.0-37.0); MCV 103.4 fL (80.0-100.0); Macrocytosis Slight; Mean Platelet Volume 7.7; Platelet Count 201 k/uL (150-450); RBC 3.27 m/uL (3.80-5.40); RDW 12.3 % (11.5-15.5)
[2023-10-12 11:46] LABS: African American GFR (CKD) >90 (>60 ml/min/1.73 sqM); Anion Gap 6 mmol/L; Blood Urea Nitrogen 13 mg/dL (7-17); Calcium 8.5 mg/dL (8.4-10.2); Carbon Dioxide 25 mmol/L (22-30); Chloride 104 mmol/L (98-107); Glucose 113 mg/dL (74-99); Magnesium 1.8 mg/dL (1.6-2.3); Non-African American GFR(CKD) 79 (>60 ml/min/1.73 sqM); Sodium 135 mmol/L (137-145)
--- NOTE | 2023-10-12 14:46 | P.PN ---
Subjective Progress Note Date: 10/12/23 Hospital course: Patient is a very pleasant 70-year-old female with a past medical history of hypothyroidism. She presented to the hospital status post mechanical fall resulting in right hip pain. Patient was found to have a right hip fracture and admitted under orthopedic surgery team. We were consulted for medical clearance and continued medical management throughout hospitalization. Patient underwent a right hip hemiarthroplasty completed on 10/10/[address] Goddard secondary to patient's subcapital fracture of right hip. Physical exam: Patient seen and fully evaluated at bedside this morning. Patient reports episode of feeling ill this morning. Patient reports upon standing she felt extremely hot like she was going to pass out and had to sit back down immediately. She denies having any dizziness or lightheadedness during this event and denies having any chest pain, palpitations, shortness of breath, or experiencing any numbness/tingling/weakness in her extremities. Patient seen and fully evaluated at bedside upon return from OR. Vital signs reviewed and stable. General: Nontoxic, no distress and appears stated age. Derm: Skin warm and dry, normal coloration for ethnicity. Head: Atraumatic, normocephalic and symmetric. Eyes: EOMs intact, no lid lag, and anicteric sclera Mouth: no lip lesions, mucus membranes moist Cardiovascular: Irregularly irregular with normal S1S2, no murmur, positive posterior tibial pulses bilaterally, and cap refill < 2 seconds. Lungs: Respirations even, regular, and unlabored on room air. Lungs CTA bilaterally, no rhonchi, no rales, no wheezing, and no accessory muscle usage. Abdominal: soft, nontender to palpation, no guarding, no appreciable organomegaly Ext: ROM intact. No gross muscle atrophy, no edema, no contractures Neuro: Speech clear, face symmetrical and CN II-XII grossly intact with no noted focal neuro deficits Psych: Alert and oriented to person, place, time, and situation. Appropriate and pleasant affect. Assessment and Plan of Care: Multiple PACs Patient went into what was initially reported as new onset atrial fibrillation during surgical repair of right subcapital hip fracture, cardiology evaluated atrial fibrillation was ruled out stating patient sinus mechanism with frequent PACs. Cardiology was consulted for evaluation and started patient on Toprol-XL 25 mg daily at this time. Order placed for continuous telemetry monitoring. Echocardiogram completed reporting slightly impaired EF of 45-50% with moderately increased septal wall thickness otherwise no valvular or structural abnormalities reported. TSH normal findings at 1.210. Presyncopal episode -Patient reported upon standing felt extremely hot like she was going to pass out and had to sit back down immediately. Suspect orthostatic hypotension secondary to pain medications patient is currently taking and recently being started on metoprolol 25 mg daily. -Order placed for repeat EKG, orthostatic vitals, CBC, BMP, magnesium, and troponin. -Cardiology is following. Status post right hip hemiarthroplasty Mechanical fall resulting in subcapital fracture right hip. Management by primary admitting orthopedic surgery team including DVT prophylaxis, wound/dressing care, pain management, weightbearing, and PT/OT Hypothyroidism Continue levothyroxine 100 g daily Hypokalemia Replaced with K Dur 40 mEq by mouth 1 dose. Repeat morning CMP and follow up on electrolytes, additional orders to be placed as needed based upon findings. Data and imaging reviewed: Vital signs reviewed. Blood pressure 120/75, heart rate 48, respiratory rate 19, temperature 97.8F, respiratory 96% on 2 L. Thank you for allowing us to participate in the care of this pleasant patient. Do not hesitate to contact us with questions. Someone can be reached from the [facility] hospitalist group all hours of the day at [phone] or via [employer]. Patient was seen independently by Nurse Pracitioner. This document was prepared using [employer] dictation software. Please allow for errors in guide, while rare they do occur. Delbert Rodriguez NP rendered care for this patient independently, reviewed the findings and plan as documented in the note above. I did not physically speak with or examine the patient on this date. Objective - Vital Signs Vital signs: Vital Signs Temp 98.3 F 10/12/23 00:17 Pulse 80 10/12/23 00:17 Resp 14 10/12/23 00:17 BP 117/57 10/12/23 00:17 Pulse Ox 95 10/12/23 00:17 FiO2 Intake & Output 10/11/23 10/12/23 10/12/23 18:59 06:59 18:59 Other: Voiding Method Indwelling Catheter # Voids 2 - Labs CBC & Chem 7: 10/13/23 05:55 10/12/23 11:00 Labs: Abnormal Lab Results - Last 24 Hours (Table) 10/11/23 Range/Units 06:43 Total Protein 4.9 L (6.2-8.2) g/dL Albumin 3.1 L (3.8-4.9) g/dL
[2023-10-12] MEDS: SENNOSIDES-DOCUSATE SODIUM 1 EACH TAB PO SCH (20:45)
[2023-10-13] MEDS: HYDROcodone/APAP 7.5-325MG 1 EACH TAB PO PRN ×3 (00:09→13:27)
[2023-10-13 03:29] VITALS: TEMP 98.2
[2023-10-13] MEDS: LEVOTHYROXINE 100 MCG TAB PO SCH (05:53)
[2023-10-13] MEDS: RIVAROXABAN 10 MG TAB PO SCH (07:33)
[2023-10-13] MEDS: METOPROLOL SUCCINATE (ER) 25 MG TAB.ER.24H PO SCH (07:33)
[2023-10-13 09:18] VITALS: BP 123/65; PULSE 64
[2023-10-13 09:42] VITALS: RESP 20
[2023-10-13 10:05] LABS: Basophils # (A) 0.03 X 10*3/uL (0.00-0.10); Basophils % (A) 0.4 %; Eosinophils # (A) 0.37 X 10*3/uL (0.04-0.35); Eosinophils % (A) 4.6 %; HCT 30.9 % (37.2-46.3); HGB 10.2 g/dL (12.0-15.0); Lymphocytes # (A) 1.38 X 10*3/uL (0.90-5.00); Lymphocytes % (A) 17.3 %; MCH 33.3 pg (27.0-32.0); Mean Platelet Volume 10.2 FL (9.5-12.2); Monocytes # (A) 0.98 X 10*3/uL (0.20-1.00); Monocytes % (A) 12.3 %; NRBC Per 100 WBC 0 X 10*3/uL (0.00-0.01); Neutrophils % (A) 64.9 %; Platelet Count 169 X 10*3/uL (140-440); RBC 3.06 X 10*6/uL (4.10-5.20); RDW 12.4 % (11.5-14.5)
--- NOTE | 2023-10-13 10:43 | P.PN ---
Subjective Progress Note Date: 10/13/23 Patient is a 70-year-old female with dyslipidemia and hypothyroidism who presented to the hospital with right hip pain after mechanical fall. Patient underwent right hip hemiarthroplasty on 10/10/2023. Patient seen and examined at bedside. Doing well today. No additional shortness of breath or dizziness. She has been up and working with therapy and did well. She does feel comfortable going home. Vital signs reviewed General: Nontoxic, no distress, appears at stated age Cardiovascular: S1S2 reg, no murmur, positive posterior tibial pulse bilateral, Lungs: CTA bilateral, no rhonchi, no rales, no accessory muscle use Ext: No gross muscle atrophy, 1+ edema b/l lower extremities, no contractures Psych: Alert, oriented, appropriate affect Assessment/Plan: Patient is a 78-year-old female status post right hip hemiarthroplasty due to subcapital femoral fracture Presyncope Sinus Multiple PACs Arrhythmia Cardiomyopathy with ejection fraction 45 to 50% -Cardiology recommendations reviewed: Toprol XL 25 mg daily, follow-up in office with Dr. Deal in 4 to 6 weeks Acute blood loss anemia, anticipated outcome of surgery - should self resolved. - repeat CBC at PCP follow-up Leukocytosis, resolved Hypothyroidism -Levothyroxine 100 mcg daily Medically optimized for discharge at the discretion of ortho. Home med rec addressed Imaging: None new Data Review: Labs reviewed from today include CBC which is remarkable for hemoglobin of 10.2. Thank you for allowing us to participate in the care of this pleasant patient. Do not hesitate to contact us with questions. Someone can be reached from the [facility] hospitalist group all hours of the day at [phone] or via [employer]. This dictation was prepared using [employer] voice recognition software. Though every attempt is made to correct errors during dictation some may still exist. Objective - Vital Signs Vital signs: Vital Signs Temp 98.2 F 10/13/23 01:50 Pulse 114 H 10/13/23 01:50 Resp 18 10/13/23 01:50 BP 135/74 10/13/23 01:50 Pulse Ox 95 10/13/23 01:50 FiO2 Intake & Output 10/12/23 10/13/23 10/13/23 18:59 06:59 18:59 Output Total 0 Balance 0 Output: Urine 0 Other: Voiding Method Indwelling Catheter # Voids 5 - Labs CBC & Chem 7: 10/13/23 05:55 10/12/23 11:00 Labs: Abnormal Lab Results - Last 24 Hours (Table) 10/12/23 10/12/23 Range/Units 11:00 11:00 WBC 11.0 H (3.8-10.6) k/uL RBC 3.27 L (3.80-5.40) m/uL Hct 33.8 L (34.0-46.0) % MCV 103.4 H (80.0-100.0) fL Sodium 135 L (137-145) mmol/L Glucose 113 H (74-99) mg/dL
--- NOTE | 2023-10-13 11:13 | P.DS ---
Providers Date of admission: 10/09/23 20:50 Expected date of discharge: 10/13/23 Attending physician: Bartolo Goddard Consults: 10/09/23 20:59 Consult Physician Routine Consulting Provider: Dawit Carr Consult Reason/Comments: femoral neck fx Do you want consulting provider notified?: Yes 10/10/23 12:29 Consult Physician Routine Consulting Provider: Arnulfo Wiley Consult Reason/Comments: a-fib during hip hemiarthroplasty Do you want consulting provider notified?: Yes Primary care physician: Bartolo Boucher - Discharge Diagnosis(es) (1) Fall Current Visit: Yes Status: Acute (2) Fracture of femoral neck, right Current Visit: Yes Status: Acute Hospital Course: This is a 78-year-old female who sustained a fracture of her right hip after a fall at home on 10/09/2023. [facility] After discussion and consideration patient elects to proceed with right hip hemiarthroplasty. The patient is seen preoperatively by Dr. Goddard and medically cleared for surgery by internal medicine. Patient is admitted to [facility] on 10/09/2023 and right hip hemiarthroplasty is performed on 10/10/2023. The procedure is performed without complication or sequelae. The patient is doing well postoperatively. Labs and vital signs are stable on day of discharge. The patient was evaluated by cardiology during this admission as well. On day of discharge patient's hip incision is healing well. There is minimal erythema. There is no drainage noted at this time. There is minimal soft tissue swelling to the hip and thigh. Patient has full foot and ankle motion without difficulty or pain. Calf is soft and nontender to palpation. Neurovascular status to the right lower extremity is intact. Patient is discharged home in good condition. Please see med rec for accurate list of home medications. Patient Condition at Discharge: Fair Plan - Discharge Summary Discharge Rx Participant: No New Discharge Prescriptions: New Sennosides [Senokot] 2 tab PO DAILY PRN #60 tablet PRN Reason: Constipation Rivaroxaban [Xarelto] 10 mg PO DAILY #30 tab Metoprolol Succinate (ER) [Toprol XL] 25 mg PO DAILY #30 tab HYDROcodone/APAP 7.5-325MG [[employer] 7.5-325] 1 - 2 tab PO Q6H PRN #32 tab PRN Reason: Pain Continue PARoxetine HCL [Paxil] 10 mg PO DAILY Cholecalciferol [Vitamin D3 (25 Mcg = 1000 Iu)] 50 mcg PO DAILY Levothyroxine Sodium [Synthroid] 100 mcg PO DAILY Discharge Medication List Cholecalciferol [Vitamin D3 (25 Mcg = 1000 Iu)] 50 mcg PO DAILY 10/09/23 [History] Levothyroxine Sodium [Synthroid] 100 mcg PO DAILY 10/09/23 [History] PARoxetine HCL [Paxil] 10 mg PO DAILY 10/09/23 [History] HYDROcodone/APAP 7.5-325MG [Fe [employer] 7.5-325] 1 - 2 tab PO Q6H PRN #32 tab 10/10/23 [Rx] Rivaroxaban [Xarelto] 10 mg PO DAILY #30 tab 10/10/23 [Rx] Sennosides [Senokot] 2 tab PO DAILY PRN #60 tablet 10/10/23 [Rx] Metoprolol Succinate (ER) [Toprol XL] 25 mg PO DAILY #30 tab 10/13/23 [Rx] Follow up Appointment(s)/Referral(s): Bartolo Goddard DO [Doctor of Osteopathic Medicine] - 10/26/23 2:00 pm (With [facility]) Bartolo Boucher DO [Primary Care Provider] - 1-2 days Kermit Deal MD [STAFF PHYSICIAN] - 4 Weeks [facility] Visiting Nurse, [NON-STAFF] - 1-2 Days ([facility] will call you to schedule your in home nursing, physical therapy, and occupational therapy visits. ) Activity/Diet/Wound Care/Special Instructions: Weightbearing as tolerated with walker. Leave dressing intact. Dressing may be removed by home care nurse or by patient in 7 days. Then change dressing twice daily until follow up. May shower with initial dressing intact and after removal. If dressing become saturated, please remove. Please take Xarelto daily for 30 days to help prevent blood clots. Recommend use of compression stockings daily until follow up to help prevent swelling and blood clots. May remove at night before sleeping. Please follow[facility]up with [facility] in 2 weeks and call with any questions or concerns, . Check Blood pressure daily and make a log. May consider repeat blood count when you see Dr. Boucher. Discharge Disposition: HOME WITH HOME HEALTH SERVICES
== END 2023-10-13 15:52 | disposition home health service (06) | DRG 522 ==
LOC: EC 19:21 → 4SSUR 20:50
PROVIDERS: ADMIT Orthopaedic Surgery; ATTEND Orthopaedic Surgery
PROC: 0SRR01A Replacement of Right Hip Joint, Femoral Surface with Metal Synthetic Substitute, Uncemented, Open Approach (ICD-10-PCS; principal; 2023-10-10 11:25)
DX: S72.011A Unspecified intracapsular fracture of right femur, initial encounter for closed fracture (principal); D62 Acute posthemorrhagic anemia; I42.9 Cardiomyopathy, unspecified; I49.1 Atrial premature depolarization; E78.5 Hyperlipidemia, unspecified; E03.9 Hypothyroidism, unspecified; E87.6 Hypokalemia; F41.9 Anxiety disorder, unspecified; Z79.890 Hormone replacement therapy; Z79.899 Other long term (current) drug therapy; W01.0XXA Fall on same level from slipping, tripping and stumbling without subsequent striking against object, initial encounter; Y92.015 Private garage of single-family (private) house as the place of occurrence of the external cause
CPT/HCPCS: 71045; 73501; 73521; 80048; 80053; 83735; 84443; 84484; 85025; 85027; 85610; 85730; 86850; 86900; 86901; 93005; 93306; 94760; 96361; 96374; 96375; 99285

== ENCOUNTER → 2024-10-11 | Outpatient (CLI) | payer MEDICARE ==
--- NOTE | 2024-10-11 16:09 | CT ---
EXAMINATION TYPE: CT hip RT wo con DATE OF EXAM: 10/11/2024 COMPARISON: None CLINICAL INDICATION: Female, 79 years old with history of RIGHT HIP W.O; Z96.641; PHH, Fall x1yr ago, rt hip pain. CT DLP: 730 mGycm Automated exposure control for dose reduction was used. FINDINGS: There is a total right hip prosthesis in anatomic alignment. There is no acute fracture or dislocatio n. There are no focal intraosseous abnormalities. The visualized pelvis is intact without fracture or focal intraosseous abnormality. The left hip is unremarkable IMPRESSION: SATISFACTORY APPEARANCE TO THE RIGHT HIP PROSTHESIS. THERE IS NO ACUTE FRACTURE OR DISLOCATION. [facility], , 10/11/2024 4:06 PM
== END | disposition home or self-care (01) ==
LOC: RADCTMAIN 15:12
PROVIDERS: ATTEND Orthopaedic Surgery
DX: M25.551 Pain in right hip (principal); Z96.641 Presence of right artificial hip joint